=== PATIENT | female | born 1995 | race Asian ===

== ENCOUNTER 2024-12-26 21:26 | Inpatient (IN) | payer OTHER ==
[~2024-12-26] VITALS: Ht 157.5 cm; Wt 74.5 kg
[2024-12-26 21:45] LABS: HEMOGLOBIN A1C 5.3 % (3.8-5.6)
[2024-12-26 21:46] LABS: BASOPHILS % (AUTO) 0.7 % (0.0-2.0); EOSINOPHILS % (AUTO) 5.3 % (1.0-6.0); HEMATOCRIT 40.1 % (36-46); HEMOGLOBIN 13.8 g/dL (12.0-16.0); LYMPHOCYTES # (AUTO) 5.1 K/uL (1.0-4.8); LYMPHOCYTES % (AUTO) 41.8 % (22.0-44.0); MEAN CORPUSCULAR HEMOGLOBIN 29.1 pg (26.0-34.0); MEAN CORPUSCULAR HGB CONC 34.4 G/dL (31.0-37.0); MEAN CORPUSCULAR VOLUME 85 fL (80-100); MONOCYTES % (AUTO) 8.1 % (2.0-9.0); NEUTROPHILS # (AUTO) 5.4 K/uL (1.8-7.7); NEUTROPHILS % (AUTO) 44.1 % (40.0-70.0); PLATELET COUNT (AUTO) 417 K/uL (150-450); RED BLOOD CELL COUNT(AUTO) 4.73 MIL/uL (4.00-5.20); WHITE BLOOD COUNT (AUTO) 12.3 K/uL (4.5-11.0)
[2024-12-26 21:50] LABS: ANION GAP 11 mmol/L (8-16); CALCIUM, TOTAL 8.9 mg/dL (8.8-10.5); CARBON DIOXIDE 24 mmol/L (22-29); CHLORIDE 102 mmol/L (98-107); CREATININE 0.85 mg/dL (0.60-1.30); GLOMERULAR FILTR. RATE CALC > 60 mL/min (>60); GLUCOSE,RANDOM 142 mg/dL (70-110); SODIUM SERUM 137 mmol/L (136-145); UREA NITROGEN, BLOOD 12 mg/dL (7-18)
[2024-12-26 21:51] LABS: POTASSIUM 2.9 mmol/L (3.5-5.1)
[2024-12-26 21:52] LABS: PROTHROMBIN TIME 9.8 SEC (9.4-11.6)
[2024-12-26 21:55] LABS: ALANINE AMINOTRANSFERASE 35 U/L (12-78); ALKALINE PHOSPHATASE 116 U/L (46-116); ASPARTATE AMINOTRANSFERASE 38 U/L (15-37); BILIRUBIN,TOTAL 0.3 mg/dL (0.1-1.0); CHOL/HDL RATIO 3.6 (3.9-5.7); CHOLESTEROL 190 mg/dL (131-200); HDL CHOLESTEROL 53 mg/dL (40-60); LDL CHOL (CALC.) 103 mg/dL (0-130); TOTAL PROTEIN, SERUM 7.7 g/dL (6.4-8.2); TRIGLYCERIDES 172 mg/dL (15-150)
[2024-12-26 21:59] LABS: TROPONIN I-HIGH SENSITIVITY 6 ng/L (<51)
[2024-12-26] MEDS ORDERED: NiCARDipine HCL 25 MG in SODIUM CHLORIDE 0.9% 240 ML IV PRN (22:00)
[2024-12-26] MEDS: NiCARDipine HCL 25 MG in SODIUM CHLORIDE 0.9% 240 ML IV PRN (22:26)
[2024-12-26] MEDS ORDERED: AmLODIPine BESYLATE 2.5 MG TABLET PO SCH (22:30)
[2024-12-26 22:34] LABS: APPEARANCE,URINE HAZY (CLEAR); BILIRUBIN,URINE NEGATIVE (NEGATIVE); COLOR,URINE BROWN (YELLOW); GLUCOSE, URINE (UA) NEGATIVE (NEGATIVE); KETONES,URINE NEGATIVE (NEGATIVE); LEUKOCYTE ESTERASE ,URINE TRACE (NEGATIVE); NITRATE,URINE NEGATIVE (NEGATIVE); OCCULT BLOOD,URINE LARGE (NEGATIVE); PH,URINE 7.5 (5.0-8.0); PH,URINE DRUG SCREEN 7.5 (5.0-8.0); PROTEIN,URINE 30-70 mg/dL (NEGATIVE); SPECIFIC GRAVITIY, URINE 1.033 (1.003-1.030); UROBILINOGEN,URINE <=1.0 mg/dL (<=1.0)
[2024-12-26 22:41] LABS: AMPHET/METH SCREEN,URINE NEGATIVE (NEGATIVE); BARBITURATE SCREEN, URINE NEGATIVE (NEGATIVE); BENZODIAZEPINES SCREEN,URINE NEGATIVE (NEGATIVE); CANNABINOID SCREEN,URINE NEGATIVE (NEGATIVE); COCAINE SCREEN,URINE NEGATIVE (NEGATIVE); METHADONE SCREEN, URINE NEGATIVE (NEGATIVE); OPIATE SCREEN,URINE NEGATIVE (NEGATIVE); PHENCYCLIDINE SCREEN,URINE NEGATIVE (NEGATIVE)
[2024-12-26 22:42] LABS: ALCOHOL, URINE DRUG SCREEN NEGATIVE (NEGATIVE)
[2024-12-26] MEDS: POTASSIUM CHL 10 MEQ/WATER 50 ML IV ONE (22:44)
[2024-12-26] MEDS: SODIUM CHLORIDE 0.9% 1,000 ML IV ONE (22:44)
[2024-12-26 22:53] LABS: BACTERIA,URINE Rare /HPF (None Seen); RBC,URINE >100 /HPF (0-2); WBC,URINE 0-2 /HPF (0-5)
[2024-12-26] MEDS: POTASSIUM CHL 10 MEQ/WATER 50 ML IV PRN (23:14)
[2024-12-27] MEDS: HydrALAZINE HCL 20 MG/ML VIAL IVP PRN (03:33)
[2024-12-27 03:34] LABS: TROPONIN I-HIGH SENSITIVITY 6 ng/L (<51)
[2024-12-27] MEDS: ONDANSETRON HCL 4 MG/2 ML VIAL IVP PRN (06:11)
[2024-12-27] MEDS: DOCUSATE SODIUM 100 MG CAPSULE PO SCH (08:36)
[2024-12-27] MEDS: PANTOPRAZOLE SODIUM 40 MG/VIAL IVP SCH (08:36)
[2024-12-27 10:04] LABS: TROPONIN I-HIGH SENSITIVITY 8 ng/L (<51)
[2024-12-27] MEDS: AmLODIPine BESYLATE 5 MG TABLET PO SCH (13:17)
[2024-12-27] MEDS: ACETAMINOPHEN 325 MG TABLET PO PRN (20:40)
[2024-12-27 21:22] VITALS: BP 144/100; PULSE 102; RESP 19; TEMP 98.2; O2SAT 98
[2024-12-27] MEDS: CHLORHEXIDINE GLUCONATE 2% TOWELETTE [2'S/6'S] TP SCH (22:46)
[2024-12-27 23:14] VITALS: BP 168/84; PULSE 101; RESP 21; TEMP 98.6; O2SAT 99
[2024-12-27 23:55] VITALS: BP 153/68; PULSE 116
[2024-12-28] VITALS (10 sets, daily range): BP systolic 141–222; BP diastolic 71–154; PULSE 83–116; RESP 16–18; TEMP 98.2–99; O2SAT 98–100
[2024-12-28 06:40] LABS: BASOPHILS % (AUTO) 0.5 % (0.0-2.0); EOSINOPHILS % (AUTO) 1.2 % (1.0-6.0); HEMATOCRIT 39.1 % (36-46); HEMOGLOBIN 13.5 g/dL (12.0-16.0); LYMPHOCYTES # (AUTO) 1.6 K/uL (1.0-4.8); LYMPHOCYTES % (AUTO) 16.8 % (22.0-44.0); MEAN CORPUSCULAR HEMOGLOBIN 29.5 pg (26.0-34.0); MEAN CORPUSCULAR HGB CONC 34.6 G/dL (31.0-37.0); MEAN CORPUSCULAR VOLUME 85 fL (80-100); MONOCYTES # (AUTO) 0.8 K/uL (0.1-1.0); MONOCYTES % (AUTO) 7.9 % (2.0-9.0); NEUTROPHILS # (AUTO) 7.2 K/uL (1.8-7.7); NEUTROPHILS % (AUTO) 73.6 % (40.0-70.0); PLATELET COUNT (AUTO) 399 K/uL (150-450); RED BLOOD CELL COUNT(AUTO) 4.59 MIL/uL (4.00-5.20); RED CELL DISTRIBUTION WIDTH 12.9 % (11.5-14.5); WHITE BLOOD COUNT (AUTO) 9.8 K/uL (4.5-11.0)
[2024-12-28 07:09] LABS: ANION GAP 9 mmol/L (8-16); CALCIUM, TOTAL 9.2 mg/dL (8.8-10.5); CARBON DIOXIDE 24 mmol/L (22-29); CHLORIDE 102 mmol/L (98-107); CREATININE 0.47 mg/dL (0.60-1.30); GLOMERULAR FILTR. RATE CALC > 60 mL/min (>60); GLUCOSE,RANDOM 104 mg/dL (70-110); POTASSIUM 3.3 mmol/L (3.5-5.1); SODIUM SERUM 135 mmol/L (136-145); UREA NITROGEN, BLOOD 6 mg/dL (7-18)
[2024-12-28] MEDS: POTASSIUM CHLORIDE 20 MEQ ER TABLET PO PRN (08:20)
[2024-12-28] MEDS: AmLODIPine BESYLATE 5 MG TABLET PO ONE (11:46)
[2024-12-29] VITALS (10 sets, daily range): BP systolic 139–174; BP diastolic 81–114; PULSE 89–123; RESP 18; TEMP 97.9–98.8; O2SAT 96–98
[2024-12-29 07:22] LABS: BASOPHILS % (AUTO) 0.7 % (0.0-2.0); EOSINOPHILS % (AUTO) 1.6 % (1.0-6.0); HEMATOCRIT 39.6 % (36-46); HEMOGLOBIN 13.6 g/dL (12.0-16.0); LYMPHOCYTES # (AUTO) 1.9 K/uL (1.0-4.8); LYMPHOCYTES % (AUTO) 22.1 % (22.0-44.0); MEAN CORPUSCULAR HEMOGLOBIN 29.3 pg (26.0-34.0); MEAN CORPUSCULAR HGB CONC 34.4 G/dL (31.0-37.0); MEAN CORPUSCULAR VOLUME 85 fL (80-100); MONOCYTES # (AUTO) 0.8 K/uL (0.1-1.0); MONOCYTES % (AUTO) 9.4 % (2.0-9.0); NEUTROPHILS # (AUTO) 5.6 K/uL (1.8-7.7); NEUTROPHILS % (AUTO) 66.2 % (40.0-70.0); PLATELET COUNT (AUTO) 399 K/uL (150-450); RED BLOOD CELL COUNT(AUTO) 4.65 MIL/uL (4.00-5.20); RED CELL DISTRIBUTION WIDTH 13.1 % (11.5-14.5); WHITE BLOOD COUNT (AUTO) 8.4 K/uL (4.5-11.0)
[2024-12-29 07:28] LABS: ANION GAP 8 mmol/L (8-16); CALCIUM, TOTAL 9.2 mg/dL (8.8-10.5); CARBON DIOXIDE 25 mmol/L (22-29); CHLORIDE 102 mmol/L (98-107); CREATININE 0.45 mg/dL (0.60-1.30); GLOMERULAR FILTR. RATE CALC > 60 mL/min (>60); GLUCOSE,RANDOM 105 mg/dL (70-110); POTASSIUM 3.5 mmol/L (3.5-5.1); SODIUM SERUM 135 mmol/L (136-145); UREA NITROGEN, BLOOD 5 mg/dL (7-18)
[2024-12-29] MEDS: AmLODIPine BESYLATE 5 MG TABLET PO SCH (08:26)
[2024-12-29] MEDS ORDERED: LOSARTAN POTASSIUM 25 MG TABLET PO SCH (10:30)
[2024-12-29] MEDS: LOSARTAN POTASSIUM 50 MG TABLET PO SCH (10:41)
== END 2024-12-29 16:15 | disposition short-term general hospital (02) | DRG 66 ==
LOC: EMS 21:26 → EDH 22:13 → 5S 12-27 21:11
PROVIDERS: ADMIT Internal Medicine; ATTEND Internal Medicine
DX: I61.3 Nontraumatic intracerebral hemorrhage in brain stem (principal); F32.9 Major depressive disorder, single episode, unspecified; I10 Essential (primary) hypertension; E87.6 Hypokalemia; R47.1 Dysarthria and anarthria
CPT/HCPCS: 51702; 70450; 70496; 70498; 71045; 80048; 80053; 80061; 80307; 81001; 82948; 83036; 84132; 84484; 84703; 85025; 85610; 85730; 92610; 93005; 96365; 99291; J0360; J2405; J2470; J3480; J3490; J7030; J7050; 36415-L1; 36415-TC